=== PATIENT | male | born 1955 | race Caucasian/White ===

== ENCOUNTER 2017-10-28 12:10 | Inpatient (IN) | payer BC ==
[~2017-10-28] VITALS: Ht 182.9 cm; Wt 118.8 kg
[~2017-10-28 12:10] MED LIST: TAMS-12 PO
--- NOTE | 2017-10-28 12:20 | NUR ---
AAOX3, CAME TO ER C/O SUBSTERNAL PAIN RADIATES TO THE NECK, PATIENT STATES "HURTS WHEN BREATHING". SKIN IS WARM AND DRY. RESP IS EVEN AND UNLABORED WITH NAD NOTED. AWAITING MD FOR EVAL.
[2017-10-28] MEDS ORDERED: NITROGLYCERIN 0.4 MG/TAB BOTTLE SL ONE (12:30)
[2017-10-28] MEDS ORDERED: NITROGLYCERIN 0.4 MG/TAB BOTTLE ONE (12:43)
--- NOTE | 2017-10-28 12:49 | NUR ---
2ND NITRO 0.4 SL GIVEN BP 121/77
[2017-10-28 13:03] LABS: BASOPHILS # (AUTO) 0.1 /CMM (0.0-0.2); BASOPHILS % (AUTO) 0.5 % (0.0-2.0); EOSINOPHILS % (AUTO) 1.4 % (0.0-6.0); HEMATOCRIT 46 % (39-51); HEMOGLOBIN 15.6 g/dL (13.5-17.5); LYMPHOCYTES % (AUTO) 8.4 % (20.0-44.0); MEAN CORPUSCULAR HGB CONC 34 g/dl (31.0-36.0); MEAN CORPUSCULAR VOLUME 86 fL (80-96); MONOCYTES # (AUTO) 1.1 /CMM (0.1-1.30); MONOCYTES % (AUTO) 9.4 % (2.0-12.0); NEUTROPHILS # (AUTO) 9.8 /CMM (1.8-8.9); NEUTROPHILS % (AUTO) 80.3 % (43.0-81.0); PLATELET COUNT (AUTO) 263 /CMM (150-450); RDW COEFFICIENT OF VARIATION 12.9 (11.5-15.0); RED BLOOD CELL COUNT(AUTO) 5.27 MIL/uL (4.5-6.0); WHITE BLOOD COUNT (AUTO) 12.2 K/uL (4.3-11.0)
[2017-10-28] MEDS ORDERED: CT SWABBABLE VALVE TRANS SET 1 EA INFUS.SET MC ONE (13:10)
[2017-10-28] MEDS ORDERED: IV NS 0.9% 250 ML IV ONE (13:10)
[2017-10-28] MEDS ORDERED: IOHEXOL-350 100 ML VIAL IV ONE ×2 (13:10→13:16)
--- NOTE | 2017-10-28 13:12 | NUR ---
PATIENT TRANSPORTED FOR CT VIA GURNEY.
[2017-10-28 13:13] LABS: CALCIUM, SERUM 9.2 mg/dL (8.5-10.1); CARBON DIOXIDE 24 mmol/L (21-32); CHLORIDE 99 mmol/L (98-107); GLUCOSE 132 mg/dL (74-106); POTASSIUM 3.9 mmol/L (3.5-5.1); SODIUM SERUM 135 mmol/L (136-145); UREA NITROGEN, BLOOD 23 mg/dL (7-18)
[2017-10-28 13:17] LABS: INR 0.95 (0.85-1.15)
[2017-10-28 13:22] LABS: TROPONIN I < 0.017 ng/mL (0.00-0.056)
[2017-10-28] MEDS ORDERED: ATOR10TA PO (13:36)
[2017-10-28] MEDS ORDERED: ASPI-966 PO (13:36)
[2017-10-28] MEDS ORDERED: AMLO5TAB7 PO (13:36)
[2017-10-28] MEDS ORDERED: NAPR220C15 PO (13:36)
[2017-10-28] MEDS ORDERED: ASPI-1169 PO (13:36)
--- NOTE | 2017-10-28 13:47 | NUR ---
CALLED NURSING SUP. FOR TELE BED
--- NOTE | 2017-10-28 13:54 | NUR ---
DR.RUTHERFORD JUSTIN SWEATBAND SEPARATOR
--- NOTE | 2017-10-28 14:16 | NUR ---
REPORT GIVEN TO CHRISTINE JOHNSON FOR VIKKI TELE [id number]
[2017-10-28] MEDS ORDERED: HYDROCODONE/APAP 5/325MG 1 EACH TABLET PO PRN (14:30)
[2017-10-28] MEDS ORDERED: ZOLPIDEM TARTRATE 5 MG TABLET PO PRN (14:30)
[2017-10-28] MEDS ORDERED: Z GUARD REMEDY 2 OZ OINT TP PRN (14:30)
[2017-10-28] MEDS ORDERED: MAGNESIUM HYDROXIDE 30 ML UDC PO PRN (14:30)
[2017-10-28] MEDS ORDERED: MORPHINE SULFATE INJ 4 MG/ML DISP.SYRIN IV PRN (14:30)
[2017-10-28] MEDS ORDERED: MAG HYDROX/AL HYDROX/SIMETH 30 ML UDC PO PRN (14:30)
[2017-10-28] MEDS ORDERED: ONDANSETRON HCL/PF 4 MG/2 ML VIAL IVP PRN (14:30)
[2017-10-28] MEDS ORDERED: MULT-447 PO (14:32)
[2017-10-28 15:10] VITALS: BP 141/76
--- NOTE | 2017-10-28 15:15 | NUR ---
ADMISSION NOTES PATIENT ADMITTED FROM ER 62 Y/OLD MALE ON DX OF CHEST PAIN ON TELE. TELE MONITOR ON , SR-95. PATIENT HAS NO RESPIRATORY DISTRESS, ON O2-2LNC. PATIENT COMPLAINING OF CHEST PAIN 2/10 ON PAIN SCALE AND PAIN RADIATING ON HIS BACK, ALSO COUGHING. LUNGS SOUNDS CLEAR DURING AUSCULTATION. V/S TAKEN BP -141/76, P-95, R-19, O2-96 NC, T-17.8. PATIENT AMBULATORY SELF CARE. SKIN ASSESSMENT DONE INTACT. ENCOURAGED TO EXPRESS FEELINGS AND CONCERNS . CALL LIGHT WITHIN TO REACH, SAFETY PRECAUTION MAINTAINED ALL THE TIME. DR MAGALLON AWARE OF NEW PATIENT AND MEDICATION. CONTINUED MONITORING. NEXT TO THE BED.
[2017-10-28] MEDS: ACETAMINOPHEN 325 MG TABLET PO PRN (15:54)
[2017-10-28 16:00] VITALS: BP 149/90
[2017-10-28] MEDS: ENOXAPARIN SODIUM 40 MG/0.4 ML DISP.SYRIN SQ SCH (16:08)
[2017-10-28] MEDS: ATORVASTATIN 10 MG TABLET PO SCH (17:50)
[2017-10-28] MEDS: AMLODIPINE BESYLATE 5 MG TABLET PO SCH (17:51)
--- NOTE | 2017-10-28 17:51 | NUR ---
RN NOTES ADMINISTERED NARCO 5/325 MG PO PRN FOR MEDIAL CHEST PAIN 10/08, PER PATIENT REQUEST, V/S TAKEN BP- 123/86, P-104, CONTINUED MONITORING. FAMILY NEXT TO THE BED.
--- NOTE | 2017-10-28 18:48 | NUR ---
RN NOTES PATIENT IN THE BED, MEDICATION WERE ADMINISTERED FOR PAIN EFFECTIVE, SCHEDULED MEDICATION ADMINISTERED, V/S STABLE, CALL LIGHT WITHIN TO REACH. CONTINUED MONITORING. ENDORSED ONCOMING NURSE FOR VIKKI.
[2017-10-28 20:00] VITALS: BP 83/62
[2017-10-28 20:30] VITALS: BP 83/62
[2017-10-28] MEDS ORDERED: HYDROCORTISONE SOD SUCCINATE 100 MG/2 ML VIAL IV ONE (20:30)
--- NOTE | 2017-10-28 20:30 | NUR ---
SENIOR SUSTAINABILITY CONSULTANT NOTE: PATIENT NOTED WITH BLOOD PRESSURE 53/34, HR 65, RESP 20, O2 AT 94% ON 2 LPM VIA NC, TEMP 97.7. PATIENT HEAD LOWERED AND NOTED TO BE PALE AND DIAPHORETIC. RAPID RESPONSE CALLED AT 1949. CRASH CART AT BEDSIDE AND PATIENT HOOKED UP TO MONITOR. PATIENT HEAD OF BED ELEVATED AND PATIENT VOMITING, WITH BLOOD PRESSURE 83/62, HR 100. RAPID RESPONSE TEAM OF ED, ICU, ASCENCION RT, ABNER RT, ARIADNA, NURSING MANAGER OF PRODUCTION, MONICA CHARGE NURSE, CHRISTINE ELLER, AND CHRISTINE CARMEN AT BEDSIDE. AT 1952, ICU NURSE, ED, WITH ORDERS FOR 500ML IV BOLUS OF NS AND TO ADMINISTER ZOFRAN 4MG IV ORDERED, AND STAT EKG. BLOOD SUGAR LEVEL 262 MG/DL. PATIENT ON MASK ON 5 LPM WITH O2 SAT OF 93%. AT 1954, PATIENT BLOOD PRESSURE 121/85, HR 98, AND O2 SAT AT 94% ON 5LPM VIA MASK. AT 2006, O2 SAT DROPPED TO 90%, INCREASED OXYGEN TO 10LPM VIA MASK. O2 SAT DECREASING DOWN TO 80% TO 90%, CHANGED TO 15LPM ON NONREBREATHER. CALLED LITHOGRAPHIC PHOTOGRAPHER APPRENTICE MD, SPOKE TO DR. JESSIKA MONTEZ, WITH NEW ORDERS FOR HYDROCORTISONE 100MG IV ONCE AND TO FOR NS 500ML BOLUS IF SBP LESS THAN 90, MAY REPEAT AFTER 30 MINUTES, WITH MAX OF 2 LITERS. ORDERS NOTED AND CARRIED OUT. WILL CONTINUE TO MONITOR.
[2017-10-28 21:00] VITALS: BP 106/71
[2017-10-28] MEDS: NITROGLYCERIN PACKET 1 GM PACKET TOP SCH (21:00)
--- NOTE | 2017-10-28 22:30 | NUR ---
PEDIGREE TRACER NOTE: PATIENT RESTING IN BED, NO ACUTE DISTRESS NOTED. BP 106/71, HR 96, RESP 20, TEMP 98.3, O2 SAT 98%, ON MASK AT 5LMP. PATIENT TO BRING PATIENT CPAP MACHINE FROM HOME. BED LOCKED AND LOWEST POSITION, CALL LIGHT IN REACH. WILL CONTINUE TO MONITOR.
[2017-10-28] MEDS ORDERED: IV NS 0.9% 500 ML IV PRN (23:00)
[2017-10-28] MEDS ORDERED: IV NS 0.9% 500 ML IV ONE (23:00)
[2017-10-29] VITALS (23 sets, daily range): BP systolic 98–129; BP diastolic 50–91
[2017-10-29] MEDS: IV NS 0.9% 1,000 ML IV SCH ×2 (00:05→04:56)
--- NOTE | 2017-10-29 00:45 | NUR ---
PHONE MANAGER NOTE: PATIENT BROUGHT PATIENT CPAP MACHINE FROM HOME. ENGINEERING CALLED AND CLEAR MACHINE FOR USE. PATIENT BLOOD PRESSURE DECREASED AGAIN TO 75/53, HR 69, RESP 20, TEMP 98.6. O2 SAT VARIED FROM 88% TO 90%, CHANGED PATIENT BACK ON NON REBREATHER. O2 SAT INCREASED TO LOW 90%, LESS THAN 95%. NS 500ML BOLUS GIVEN PER MD ORDER. SPOKE TO CABLE PULLER MD, DR. JESSIKA MONTEZ AND UPDATED ON PATIENT STATUS, ORDERS FOR STAT ABG, PATIENT BEGAN VOMITING AGAIN. VITAL SIGNS INCREASED TO 98/72, HR 86, RESP 20., O2 SAT 94%. WILL CONTINUE TO MONITOR.
[2017-10-29 01:18] LABS: ABG BASE EXCESS -2.8 mmol/L; ABG PCO2 34.9 mmHg (35.0-45.0); ABG PH 7.402 (7.350-7.450); ABG PO2 61.9 mmHg (75.0-100.0); AaDO2 616.2 mmHg; COHb 0.7 % (0.5-1.5); MetHb 0.3 % (0.0-1.5); O2Hb 90.1 % (94.0-97.0); SITE, ABG Right Radial; VENT MODE, BG NRB 15L
--- NOTE | 2017-10-29 02:00 | NUR ---
TAX SERVICES INTERN NOTE: PATIENT COMPLETED IV BOLUS, VITAL SIGNS STABLE, BP 112/76, HR 88, O2 SAT 96% STILL ON NON REBREATHER. WILL CONTINUE TO MONITOR.
--- NOTE | 2017-10-29 04:00 | NUR ---
LINE DANCER NOTE: RECEIVED CALL FROM LAMINATING MACHINE OPERATOR HELPER , DR. JESSIKA MONTEZ REGARDING ABG RESULTS. PATIENT TO BE STARTED ON RESCUE BIPAP AND TO TRANSFER TO ICU. CALLED NURSING LOGGING RAFTER LABORER FOR ICU BED. CALLED RT, SPOKE TO ASCENCION, TO GET BIPAP READY FOR PATIENT. WILL CONTINUE TO MONITOR.
--- NOTE | 2017-10-29 04:35 | NUR ---
PLACED PT ON BIPAP 12/5,RATE 12, FIO2 80%. NO RESP DISTRESS NOTED.
--- NOTE | 2017-10-29 04:40 | NUR ---
WAREHOUSE ASSOCIATE DRIVER NOTE: PATIENT TO BE TRANSFERRED TO ROOM 254, SPOKE TO JAMES AND REPORT GIVEN. PATIENT TRANSFERRED TO ROOM 254 USING ACLS PROTOCOL, WITH OXYGEN ON 15LPM ON NON REBREATHER, WITH NO ACUTE DISTRESS. BIPAP IN ROOM AND TO BE SET UP WITH RT.
[2017-10-29] MEDS: NITROGLYCERIN PACKET 1 GM PACKET TOP SCH ×3 (06:01→21:27)
[2017-10-29 06:20] LABS: ABG BASE EXCESS 0.4 mmol/L; ABG OXYGEN SATURATION 98.5 % (92.0-98.5); ABG PCO2 34.6 mmHg (35.0-45.0); ABG PH 7.454 (7.350-7.450); ABG PO2 186.3 mmHg (75.0-100.0); AaDO2 347.8 mmHg; COHb 0.4 % (0.5-1.5); MetHb 0.6 % (0.0-1.5); O2Hb 97.5 % (94.0-97.0); SITE, ABG Right Radial; VENT MODE, BG BIPAP12/5. FIO2 80%
[2017-10-29] MEDS ORDERED: methylPREDNISolone SOD SUCC 125 MG/2ML VIAL IV ONE (06:30)
--- NOTE | 2017-10-29 06:45 | NUR ---
NUT TIGHTENER: PT REMAINED A/O X 4. CONTINUE ON BIPAP WT SETTINGS ORDERED. FI02 DECREASED TO 50%. NO ACUTE DISTRESS, NO C/O PAIN OR EVIDENCE OF DISCOMFORT. SR ON DIGITAL PRINTER. DR. MONTEZ SAW AND EXAMINED PT WT NEW ORDERS. ALSO SPOKE WT AND DISCUSSED POC. ALL NEEDS MET.
[2017-10-29 06:48] LABS: HEMATOCRIT 42 % (39-51); HEMOGLOBIN 14.4 g/dL (13.5-17.5); LYMPHOCYTES # (AUTO) 0.9 /CMM (0.8-4.8); LYMPHOCYTES % (AUTO) 5.5 % (20.0-44.0); MEAN CORPUSCULAR HGB CONC 34 g/dl (31.0-36.0); MEAN CORPUSCULAR VOLUME 88 fL (80-96); MONOCYTES # (AUTO) 1.2 /CMM (0.1-1.30); MONOCYTES % (AUTO) 7.9 % (2.0-12.0); NEUTROPHILS # (AUTO) 13.6 /CMM (1.8-8.9); NEUTROPHILS % (AUTO) 86.6 % (43.0-81.0); PLATELET COUNT (AUTO) 246 /CMM (150-450); RED BLOOD CELL COUNT(AUTO) 4.76 MIL/uL (4.5-6.0); WHITE BLOOD COUNT (AUTO) 15.6 K/uL (4.3-11.0)
[2017-10-29 06:55] LABS: CALCIUM, SERUM 8.7 mg/dL (8.5-10.1); CREATININE 1.4 mg/dL (0.6-1.3); MAGNESIUM 2.1 mg/dL (1.8-2.4); PHOSPHORUS 3.6 mg/dL (2.5-4.9); POTASSIUM 4.4 mmol/L (3.5-5.1)
--- NOTE | 2017-10-29 08:00 | NUR ---
ICU/RN AM SHIFT INITIAL NOTES RECEIVED PT AWAKE SITTING IN BED, A/O X 4, DENIES SHORTNESS OF BREATH OR CHEST PAIN. ON BIPAP, RATES SET PRESCRIBED, SATURATING @ 91%, LUNG SOUNDS CLEAR. ON TELE WITH SINUS RHYTHM, HR 98. ON GOING IV INFUSION OF NS @ 75CC/HR. PT IS COMFORTABLE, SCHEDULED AM MEDS TO BE GIVEN. CL WITHIN REACHED AND SAFETY MAINTAINED. ON GOING MONITORING.
[2017-10-29] MEDS: ASPIRIN 81 MG TAB.CHEW PO SCH (08:11)
[2017-10-29] MEDS ORDERED: IV NS 0.9% 1,000 ML IV PRN (08:34)
[2017-10-29 09:43] LABS: THYROID STIMULATING HORMONE 1.105 uIU/mL (0.358-3.74)
--- NOTE | 2017-10-29 12:00 | NUR ---
ICU/RN ROUNDS - DR. MAGALLON UPDATED PT'S CONDITION. PT SEEN & EXAMINED BY DR. MAGALLON. NO NEW ORDERS RECEIVED AT THIS TIME. MONITORING CONTINUED.
[2017-10-29] MEDS: methylPREDNISolone SOD SUCC 125 MG/2ML VIAL IV SCH ×2 (12:56→16:54)
[2017-10-29] MEDS: CEFTRIAXONE 1 G in IV D5W 50 ML IV SCH (14:14)
[2017-10-29] MEDS: ACETAMINOPHEN 325 MG TABLET PO PRN (14:38)
--- NOTE | 2017-10-29 16:00 | NUR ---
ICU/RN AFTERNOON ROUNDS NO ACUTE CHANGE OF CONDITION. PT WITH AND DAUGHTER AT BEDSIDE. MONITORING CONTINUED.
[2017-10-29] MEDS: AZITHROMYCIN 500 MG in IV D5W 250 ML IV SCH (16:54)
[2017-10-29] MEDS: ATORVASTATIN 10 MG TABLET PO SCH (17:02)
[2017-10-29] MEDS: AMLODIPINE BESYLATE 5 MG TABLET PO SCH (17:02)
--- NOTE | 2017-10-29 19:32 | NUR ---
ICU/RN AM SHIFT END NOTES ALL NEEDS MET. NO ACUTE CHANGE OF CONDITION NOTED DURING THE SHIFT. IV SITE PATENT WITH ON GOING INFUSION OF NS @ 75CC/HR. PT ENDORSED TO PM NURSE TO CONTINUE CARE. CL WITHIN REACHED AND SAFETY MAINTAINED.
[2017-10-29] MEDS: ENOXAPARIN SODIUM 40 MG/0.4 ML DISP.SYRIN SQ SCH (21:25)
--- NOTE | 2017-10-29 21:30 | NUR ---
PROFESSIONAL PROGRAMMER ANALYST: PT REMAINS A/O X 4. ON 4L 02 VIA NC WT 02 SAT 91% AND ABOVE. NO ACUTE DISTRESS. ASKED HIM IF HE WANTS TO BE ON BIPAP MACHINE BUT SAID HE'S FINE. ABLE TO AMBULATE TO THE RESTROOM. NO C/O PAIN AT THIS TIME. RT. HAND IV RUNNING NS AT 75ML/HR WT NO S/S OF INFILTRATION. MOTIVATED TO SELF CARE WT STAND BY ASSISTANCE. HOB AT 45 DEGREES WHEN IN BED. SAFETY PRECAUTION NOTED. WILL CONTINUE TO MONITOR.
[2017-10-30] VITALS (14 sets, daily range): BP systolic 83–132; BP diastolic 44–77
[2017-10-30 04:58] LABS: HEMATOCRIT 37 % (39-51); HEMOGLOBIN 12.6 g/dL (13.5-17.5); LYMPHOCYTES # (AUTO) 0.6 /CMM (0.8-4.8); LYMPHOCYTES % (AUTO) 3.6 % (20.0-44.0); MEAN CORPUSCULAR HGB CONC 34 g/dl (31.0-36.0); MEAN CORPUSCULAR VOLUME 88 fL (80-96); MONOCYTES # (AUTO) 0.9 /CMM (0.1-1.30); MONOCYTES % (AUTO) 5.3 % (2.0-12.0); NEUTROPHILS # (AUTO) 15.5 /CMM (1.8-8.9); NEUTROPHILS % (AUTO) 91.1 % (43.0-81.0); PLATELET COUNT (AUTO) 185 /CMM (150-450); RDW COEFFICIENT OF VARIATION 13.7 (11.5-15.0); RED BLOOD CELL COUNT(AUTO) 4.15 MIL/uL (4.5-6.0)
[2017-10-30] MEDS: NITROGLYCERIN PACKET 1 GM PACKET TOP SCH ×3 (05:11→21:24)
[2017-10-30 05:15] LABS: ALANINE AMINOTRANSFERASE 35 U/L (12-78); ALBUMIN 3.1 g/dL (3.4-5.0); ALKALINE PHOSPHATASE 53 U/L (46-116); ASPARTATE AMINOTRANSFERASE 16 U/L (15-37); BILIRUBIN,TOTAL 0.4 mg/dL (0.2-1.0); CARBON DIOXIDE 24 mmol/L (21-32); CHLORIDE 104 mmol/L (98-107); GLUCOSE 155 mg/dL (74-106); MAGNESIUM 2.2 mg/dL (1.8-2.4); PHOSPHORUS 2.5 mg/dL (2.5-4.9); POTASSIUM 4.2 mmol/L (3.5-5.1); SODIUM SERUM 138 mmol/L (136-145); TOTAL PROTEIN, SERUM 7.1 g/dL (6.4-8.2); UREA NITROGEN, BLOOD 28 mg/dL (7-18)
[2017-10-30 05:19] LABS: TROPONIN I < 0.017 ng/mL (0.00-0.056)
--- NOTE | 2017-10-30 06:45 | NUR ---
INFORMATION OFFICER: NO SIGNIFICANT VIKKI DURING THE SHIFT. REMAINED ON 4L 02 VIA NC WT NO BIPAP NEEDED. 02 SAT 92% AND ABOVE. NO ACUTE DISTRESS. NO C/O PAIN. V/S WITHIN PT's BASELINE. ALL NEEDS MET.
--- NOTE | 2017-10-30 07:10 | NUR ---
RN INITIAL NOTES: REC'D PT AWAKE ON BED, A/O X 4, DENIES ANY CHEST PAIN/ DISCOMFORT AT THIS TIME. ON NC AT 4LPM, NO SOB. ON TELEMONITOR, SR W/ HR 78 BPM. HAS L HAND G20, PL W/ NS X 75 CC/HR INFUSING WELL, NO S/SX OF INFECTION/INFILTRATION NOTED. PROVIDED COMFORT & SAFETY MEASURES. BED KEPT LOW & IN LOCKED POS. CALL LIGHT PLACED W/IN REACH. WILL CONTINUE TO MONITOR & ATTEND PT NEEDS.
--- NOTE | 2017-10-30 08:30 | NUR ---
RN NOTES: PT SEEN & EXAMINED BY DR. EARLY W/ ORDERS MADE & CARRIED OUT. MANUALLY CHECKED BP 112/68, RELAYED TO .
[2017-10-30] MEDS ORDERED: ERGOCALCIFEROL (VITAMIN D 2) 50,000 UNIT CAPSULE PO SCH (09:00)
[2017-10-30] MEDS: ASPIRIN 81 MG TAB.CHEW PO SCH (09:08)
[2017-10-30] MEDS: methylPREDNISolone SOD SUCC 125 MG/2ML VIAL IV SCH ×3 (09:08→17:19)
--- NOTE | 2017-10-30 10:34 | NUR ---
RN NOTES: PT SEEN & EXAMINED BY DR. MAGALLON W/ ORDERS MAY DC IVF.
--- NOTE | 2017-10-30 10:55 | NUR ---
RN NOTES: PT DC FROM IVF ORDERED. PT WAS ABLE TO AMBULATE W/ SUPERVISION. PT GAIT IS STEADY, DENIES ANY DIZZINESS, CHEST PAIN & DISCOMFORT. PT ASSISTED DOING TO THE RESTROOM. CHOCOLATE COATER AWAITING FOR HIM OUTSIDE. DTR AT BEDSIDE. 1112 PT ASSISTED BACK TO HIS ROOM, NO C/O CHEST PAIN. HE SAID HE IS A LITTLE LIGHTHEADED. HE HAS SOFT BM.
--- NOTE | 2017-10-30 12:00 | NUR ---
ADMINISTRATIVE SERVICES COORDINATOR NOTES: PT TRANSFERRED TO [facility] 206 ORDERED. PT WAS TRANSFERRED VIA WHEELCHAIR NOT IN ANY DISTRESS, NO CHEST PAIN ACCOMPANIED BY RN & DTR. REPORT GIVEN TO DIMAS KING. ALL BELONGINGS SENT W/ PT. IV LINE ACCESS KEPT PATENT & INTACT. NO CONCERNS IDENTIFIED DURING TRANSFER.
--- NOTE | 2017-10-30 12:00 | NUR ---
MS RN NOTE RECEIVED PATIENT FROM ICU. REPORT RECEIVED FROM CHRISTINE BUTCHER. NO PAIN NOTED, NO SOB OR DISTRESS NOTED. IN BED AT THIS TIME RESTING COMFORTABLY WILL CONTINUE ALL CARE
[2017-10-30] MEDS: CEFTRIAXONE 1 G in IV D5W 50 ML IV SCH (13:19)
[2017-10-30] MEDS: AZITHROMYCIN 500 MG in IV D5W 250 ML IV SCH (14:04)
[2017-10-30] MEDS: ATORVASTATIN 10 MG TABLET PO SCH (17:19)
--- NOTE | 2017-10-30 18:49 | NUR ---
MS RN CLOSING NOTE PATIENT IS ALERT AND ORIENTED x4. NO PAIN AT THIS TIME. NO SOB OR DISTRESS NOTED. CALL LIGHT WITHIN REACH AT ALL TIMES. SAFETY MEASURES IMPLEMENTED. ALL MEDICATIONS GIVEN ORDERED. ALL NURSING CARE NEEDS ATTENDED TO NEEDED. IV INTACT AND PATENT NO REDNESS OR SWELLING NOTED. ON 4L/MIN OF OXYGEN VIA NASAL CANNULA TOLERATING WELL. AM LABS. WILL ENDORSE TO SALES CLOSER NURSE FOR VIKKI
[2017-10-30] MEDS: ENOXAPARIN SODIUM 40 MG/0.4 ML DISP.SYRIN SQ SCH (21:24)
[2017-10-31 05:15] VITALS: BP 128/70
--- NOTE | 2017-10-31 05:17 | NUR ---
SLEPT THROUGH THE NIGHT. CHANGING IS OWN POSITION IN THE BED. BLOOD PRESSURE MAINTAINED ABOVE SYST 100.
[2017-10-31] MEDS: NITROGLYCERIN PACKET 1 GM PACKET TOP SCH ×2 (05:31→13:31)
[2017-10-31 06:45] LABS: HEMATOCRIT 38 % (39-51); HEMOGLOBIN 12.9 g/dL (13.5-17.5); LYMPHOCYTES # (AUTO) 0.6 /CMM (0.8-4.8); LYMPHOCYTES % (AUTO) 3.7 % (20.0-44.0); MEAN CORPUSCULAR HGB CONC 34 g/dl (31.0-36.0); MEAN CORPUSCULAR VOLUME 90 fL (80-96); MONOCYTES # (AUTO) 0.9 /CMM (0.1-1.30); MONOCYTES % (AUTO) 5.8 % (2.0-12.0); NEUTROPHILS # (AUTO) 14.7 /CMM (1.8-8.9); NEUTROPHILS % (AUTO) 90.5 % (43.0-81.0); PLATELET COUNT (AUTO) 223 /CMM (150-450); RED BLOOD CELL COUNT(AUTO) 4.25 MIL/uL (4.5-6.0); WHITE BLOOD COUNT (AUTO) 16.3 K/uL (4.3-11.0)
[2017-10-31 07:13] LABS: ALBUMIN 2.9 g/dL (3.4-5.0); BILIRUBIN,TOTAL 0.3 mg/dL (0.2-1.0); CREATININE 0.9 mg/dL (0.6-1.3); MAGNESIUM 2.2 mg/dL (1.8-2.4); PHOSPHORUS 2.8 mg/dL (2.5-4.9); POTASSIUM 4.1 mmol/L (3.5-5.1); TOTAL PROTEIN, SERUM 7.1 g/dL (6.4-8.2)
[2017-10-31 08:00] VITALS: BP 138/81
[2017-10-31 08:28] VITALS: BP 135/81
[2017-10-31] MEDS: methylPREDNISolone SOD SUCC 125 MG/2ML VIAL IV SCH ×2 (08:54→13:36)
[2017-10-31] MEDS: ASPIRIN 81 MG TAB.CHEW PO SCH (08:54)
--- NOTE | 2017-10-31 08:57 | NUR ---
MS RN NOTES PATIENT IS A/O X4, BREAKFAST SERVED WITH GOOD APPETITE. SATING 97% ON 3L VIA NC, NO SOB, DENIES CHEST PAIN. DUE MEDS GIVEN, CALL LIGHT WITHIN REACH. WILL CONT TO MONITOR.
[2017-10-31] MEDS ORDERED: ERGOCALCIFEROL (VITAMIN D 2) 50,000 UNIT CAPSULE PO SCH (10:30)
[2017-10-31 11:04] LABS: LYMPHOCYTES % (MANUAL) 3 % (16-48); MONOCYTES % (MANUAL) 3 % (0-11.0); NEUTROPHILS % (MANUAL) 94 (42-76)
[2017-10-31] MEDS ORDERED: LEVO500T75 PO (12:14)
[2017-10-31 13:31] VITALS: BP 136/78
[2017-10-31] MEDS: CEFTRIAXONE 1 G in IV D5W 50 ML IV SCH (13:36)
[2017-10-31] MEDS: AZITHROMYCIN 500 MG in IV D5W 250 ML IV SCH (14:43)
--- NOTE | 2017-10-31 15:50 | NUR ---
MS RN DISCHARGED PATIENT HAS BEEN CLEARED FOR DISCHARGE HOME BY MD, VS REMAINS STABLE, DENIES CHEST PAIN, AMBULATORY, SKIN INTACT. IVC IN LEFT AC REMOVED, GAUZE APPLIED. NO BLEEDING NOTED. DISCHARGED INSTRUCTION GIVEN TO THE PATIENT, VERBALIZED UNDERSTANDING. PRESCRIPTION AND BELONGINGS SEND UPON DC. INSTRUCTED PATIENT TO FOLLOW UP POST DISCHARGE [address] EARLY AND PRIMARY CARE PHYSICIAN. PATIENT LEFT IN STABLE CONDITION VIA PRIVATE CAR, ACCOMPANIED BY -FEI.
[2017-10-31] MEDS ORDERED: LACTOBACILLUS RHAMNOSUS GG 1 EACH CAP.SPRINK PO SCH (17:00)
[2017-10-31 21:13] LABS: *MYCOPLASMA PNEUMONIAE IgG <100 U/mL (0-99); *MYCOPLASMA PNEUMONIAE IgM <770 U/mL (0-769)
[2017-11-02 09:21] LABS: CHLAMYDIA AB, IgG <0.91 ratio (0.00-0.90)
== END 2017-10-31 15:50 | disposition home or self-care (01) | DRG 193 ==
LOC: ER 12:12 → TELE 14:19 → ICU 10-29 04:41 → MEDSG2 10-30 12:03
PROVIDERS: ADMIT Internal Medicine; ATTEND Internal Medicine
PROC: 5A09357 Assistance with Respiratory Ventilation, Less than 24 Consecutive Hours, Continuous Positive Airway Pressure (ICD-10-PCS; principal; 2017-10-29)
DX: J15.9 Unspecified bacterial pneumonia (principal); J96.01 Acute respiratory failure with hypoxia; J98.59 Other diseases of mediastinum, not elsewhere classified; N17.9 Acute kidney failure, unspecified; I31.3 Pericardial effusion (noninflammatory); E87.1 Hypo-osmolality and hyponatremia; E66.2 Morbid (severe) obesity with alveolar hypoventilation; J12.9 Viral pneumonia, unspecified; E86.1 Hypovolemia; E78.5 Hyperlipidemia, unspecified; I10 Essential (primary) hypertension; R07.81 Pleurodynia; E66.9 Obesity, unspecified; Z68.35 Body mass index [BMI] 35.0-35.9, adult
CPT/HCPCS: 36415; 36600; 71045-TC; 71250-TC; 80048-TC; 80053-TC; 80061-TC; 82164; 82306; 82803-TC; 82962-TC; 83735-TC; 83880; 84100-TC; 84439-TC; 84443-TC; 84484-TC; 85025-TC; 85652-TC; 85730-TC; 86140-TC; 86631; 86632; 86738; 87081-TC; 87400; 87449; 93307-TC; A4606; J0456; J0696; J1650; J1720; J2405; J2930; J7030; J7050; J7060; Q9967; Z7610